=== PATIENT | female | born 1980 | race Caucasian/White ===

== ENCOUNTER 2022-06-20 10:34 | Outpatient (CLI) | payer BC, SELFPAY ==
[2022-06-20 22:31] LABS: Albumin* 5.1 g/dL (3.3-5.0); Chloride* 98 mmol/L (96-114); Sodium* 137 mmol/L (135-149)
[2022-06-20 22:32] LABS: Potassium* 4.6 mmol/L (3.6-5.1)
[2022-06-20 22:33] LABS: Cholesterol* 188 mg/dL (90-199)
[2022-06-20 22:34] LABS: Alanine Aminotransferase* 54 U/L (4-35); Alkaline Phosphatase* 83 U/L (40-150); Aspartate Amino Transferase* 29 U/L (12-35); Bilirubin Total* 0.6 mg/dL (0.1-1.5); Blood Urea Nitrogen* 18 mg/dL (5-24); Carbon Dioxide* 27 mmol/L (20-32); Creatinine* 0.8 mg/dL (0.5-1.5); Estimated Glomerular Filt Rate 94 ml/min; Glucose* 86 mg/dL (60-115); Total Protein* 7.8 g/dL (6.0-8.3); Triglycerides* 196 mg/dL (40-149)
[2022-06-20 22:35] LABS: Calcium* 10.3 mg/dL (8.4-10.6); HDL Cholesterol* 62 mg/dL (>=50); LDL Cholesterol Calculated 87 mg/dL (<100)
[2022-06-20 23:23] LABS: Hepatitis C Virus Antibody* Negative (Negative)
== END 2022-06-20 10:35 | disposition home or self-care (01) ==
PROVIDERS: PCP Physician Assistant Medical; Visit Provider Family Medicine
DX: Z00.00 Encounter for general adult medical examination without abnormal findings (principal); I10 Essential (primary) hypertension; E78.5 Hyperlipidemia, unspecified; F41.9 Anxiety disorder, unspecified; Z11.59 Encounter for screening for other viral diseases
CPT/HCPCS: 80053; 80061; 86803

== ENCOUNTER 2023-02-12 23:41 | Emergency (ER) | payer BC, SELFPAY ==
[2023-02-12 23:53] VITALS: BP 133/74; PULSE 117; RESP 18; TEMP 36.7; O2SAT 100; BMI 29.2
--- NOTE | 2023-02-13 01:21 | ED_ITS ---
HPI - General Adult General Chief complaint: Skin/Abscess/Foreign Body Stated complaint: infection on R side. Time Seen by Provider: 02/12/23 23:57 Source: patient Mode of arrival: ambulatory History of Present Illness HPI narrative: 42-year-old female presents to the emergency department for evaluation of skin abscess on her right chest. This has been bothersome for the past week. She was initially evaluated in clinic. Attempts at incision and drainage were made, unsuccessful. She was started on Bactrim, continues to take this, has a couple of days remaining she believes.. Patient left after a few days to vacation in [place] over the weekend. She reports that she got back into town this evening. She reports for the last few days the pain has been worsening, it has been getting red around the area. No drainage has been noted. It sounds like she went to an urgent care in [place] and was given a shot of Rocephin a couple of days ago but they did not switch her oral antibiotics nor make an attempt at incision and drainage. She has not been running fevers in the last few days. No nausea, vomiting, symptoms of sepsis, dizziness. She has had workup on this lesion in the past and it is known to be a sebaceous cyst that has become inflamed and infected recently. There was no trauma or injury. Past medical history notable for depression, hypertension. Home meds reviewed, she confirms that these are accurate. No recent surgeries. Nonsmoker. ROS is notable for the right chest skin symptoms as above. Otherwise denies any other skin, musculoskeletal, neurological, respiratory, cardiovascular or generalized changes. Related Data Previous Rx's Medication Instructions Recorded bupropion HCl 300 mg 24 hr tablet, 300 mg PO DAILY #90 tabs 06/20/22 extended release hydrochlorothiazide 25 mg tablet 25 mg PO DAILY #90 tabs 06/20/22 metoprolol succinate 25 mg 25 mg PO DAILY #90 tabs 06/20/22 tablet,extended release 24 hr trazodone 100 mg tablet 100 mg PO .hs #90 tabs 06/20/22 celecoxib 200 mg capsule (Celebrex) 200 mg PO QDAY #90 caps 08/22/22 acyclovir 400 mg tablet 400 mg PO QDAY #90 tabs 01/20/23 dexmethylphenidate 40 mg 40 mg PO QAM #30 caps 01/20/23 capsule,extended release [id number] (Focalin XR) [id number] See Rx Instructions PO Q4H PRN 01/24/23 50 mg-325 mg-40 mg tablet pain #30 tabs sulfamethoxazole 800 1 tab PO BID 10 days #20 tabs 02/06/23 mg-trimethoprim 160 mg tablet (Bactrim DS) sulfamethoxazole 800 1 tab PO BID #14 tabs 02/13/23 mg-trimethoprim 160 mg tablet (Bactrim DS) Allergies Allergy/AdvReac Type Severity Reaction Status Date / Time neomycin Allergy Intermediate Rash Verified 02/06/23 14:47 [facility] Medical History Shingles ?B02.9 - Zoster without complications (ICD-10) Malignant melanoma ?C43.9 - Malignant melanoma of skin, unspecified (ICD-10) History of fracture of facial bone (01/08/12) ?Z87.81 - Personal history of (healed) traumatic fracture (ICD-10) History of colonic polyps ?Z86.010 - Personal history of colonic polyps (ICD-10) 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, unspecified (ICD-10) Fracture of tibia and fibula ?S82.209A - Unspecified fracture of shaft of unspecified tibia, initial encounter for closed fracture (ICD-10) ?S82.409A - Unspecified fracture of shaft of unspecified fibula, initial encounter for closed fracture (ICD-10) Surgical History Status post biopsy of skin ?Z98.890 - Other specified postprocedural states (ICD-10) History of surgical removal of ganglion cyst ?Z98.890 - Other specified postprocedural states (ICD-10) History of sinus surgery ?Z98.890 - Other specified postprocedural states (ICD-10) History of placement of ear tubes ?Z96.22 - Myringotomy tube(s) status (ICD-10) History of cone biopsy of cervix ?Z98.890 - Other specified postprocedural states (ICD-10) History of colonoscopy with polypectomy (03/14/13) ?Z98.890 - Other specified postprocedural states (ICD-10) ?Z86.010 - Personal history of colonic polyps (ICD-10) History of cholecystectomy ?Z90.49 - Acquired absence of other specified parts of digestive tract (ICD- 10) History of breast augmentation ?Z98.82 - Breast implant status (ICD-10) Family History Father Cardiac arrhythmia Sister Crohn's disease Social History Narrative: Alcohol ingestion, 1-4 drinks/week Does not use illicit drugs Nonsmoker Smoking Status: Never smoker How often do you have a drink containing alcohol: never AUDIT-C Alcohol total score: 0 Non-prescribed substance use: denies use Little interest or pleasure in doing things: several days Feeling down, depressed, or hopeless: not at all Exam Const: Vital Signs, click to edit/add: Vital Signs - 24 hr 02/12/23 23:53 Temperature 98.1 F Pulse Rate [Left P ulse Oximeter] 117 H Respiratory Rate 18 Blood Pressure [Ri ght Upper Arm] 133/74 Pulse Oximetry 100 Oxygen Delivery Me thod Room Air Documenting provider has reviewed patient's vital signs: yes Common normals: no apparent distress General appearance: cooperative, comfortable and well kempt HENMT: Common normals: normocephalic Head and scalp: normocephalic Mouth: oral and palatal mucosa normal Throat: posterior oropharynx normal Eye: Common normals: conjunctivae normal General eye: normal appearance of both eyes Conjunctiva: conjunctiva(e) normal Neck & C-Spine: Common normals: full ROM and no lymphadenopathy Chest: Other: Larger area of redness surrounding central fluctuant tender area on right lateral chest wall underneath axilla. Does not communicate with axilla. Fluctuant area is 5 x 4 cm. Surrounding area of redness is 30 x 20 cm. Does not seem to communicate with breast structures or tunnel deeply. Resp: Common normals: normal respiratory effort and clear to auscultation bilaterally Effort & inspection: able to speak in complete sentences Auscultation: clear to auscultation bilaterally Cardio: Common normals: regular rate, regular rhythm, S1 normal heart sound, S2 normal heart sound and no murmurs Rate: regular rate Rhythm: regular rhythm Heart sounds: S1 normal and S2 normal Neuro: Speech: speech normal Motor exam: no movement abnormalities noted Psych: Appearance: well kempt Activity/motor behavior: appropriate eye contact Mood and affect: euthymic mood Insight: insight good Judgement: judgment good Skin: Narrative: No abrasions or signs of trauma. Please see abscess as documented above. Course Course Hospital Course: Obvious abscess. Fluctuant area does seem like it is ready for drainage. Risks and benefits of this discussed with patient. She gives verbal consent. Procedure incision and drainage: Area was cleansed with Betadine and injected with a total of 8 mL of 1% lidocaine with epinephrine, panting a very large area due to the fact that this is a rather large abscess and may need exploration. This did give good anesthesia. Incision was made in the posterior aspect of the fluctuant region bloody purulent fluid began flowing out immediately. Culture was taken. Curved hemostat was used to gently explore the fluctuant area, allowing more purulent material to express as well as some sebaceous material. Dental massaged for about 10 minutes was used around the entire indurated area to attempt to break open any further pham and infection containing areas. There was certainly still some firm areas that seem consistent with lymph nodes but no further areas of abscess or infection following incision and drainage. The 4 mm incised area is left open, covered in antibiotic ointment, several layers of gauze and a pressure dressing. Patient is counseled on care of the wound. Total procedure did take 30 minutes. Counseled patient that she will need additional days of oral antibiotics. Has been given additional supply Bactrim. Counseled that it is unlikely that the Bactrim failed but rather that abscesses do not tend to respond well to oral antibiotics. Once they were drained, the infection is much easier to treat. She will need this rechecked in 2-3 days in the clinic. If it is not improving appropriately, will need surgical consult urgently. Alarm symptoms reviewed such is signs of sepsis. Area of cellulitis surrounding was clearly marked. Patient may discontinue the Bactrim 5 days post incision and drainage if everything has cleared up nicely. Counseled that this will leave skin changes for several months but she should have marked improvement in pain, lumpiness and drainage within a couple of days. She verbalizes full understanding and agreement. Counseled on Tylenol and ibuprofen for pain control. Leave current dressing on for 24 hours, see discharge instructions. Vital Signs Vital signs: Initial Vital Signs Temperature 98.1 F 02/12/23 23:53 Temperature Source Temporal Artery Scan 02/12/23 23:53 Pulse Rate 117 H 02/12/23 23:53 Respiratory Rate 18 02/12/23 23:53 Blood Pressure 133/74 02/12/23 23:53 Blood Pressure Mean 93 02/12/23 23:53 Blood Pressure Position Sitting 02/12/23 23:53 Pulse Oximetry 100 02/12/23 23:53 Oxygen Delivery Method Room Air 02/12/23 23:53 Vital Signs Temperature 98.1 F 02/12/23 23:53 Pulse Rate 117 H 02/12/23 23:53 Respiratory Rate 18 02/12/23 23:53 Blood Pressure 133/74 02/12/23 23:53 Pulse Oximetry 100 02/12/23 23:53 Oxygen Delivery Method Room Air 02/12/23 23:53 Temperature 98.1 F 02/12/23 23:53 Pulse Rate 117 H 02/12/23 23:53 Respiratory Rate 18 02/12/23 23:53 Blood Pressure 133/74 02/12/23 23:53 Pulse Oximetry 100 02/12/23 23:53 Oxygen Delivery Method Room Air 02/12/23 23:53 Discharge Plan Discharge Clinical Impression: Abscess of skin and subcutaneous tissue Patient Disposition: Home w/ Parent or Adult Condition: Improved Instructions: Abscess Incision and Drainage (DC) Additional Instructions: As we discussed, these types of infections tend to heal much better once they are properly drained. I was able to extract a lot of pus and fluid from the abscess. It may continue to drain. It should hurt markedly less than prior to drainage. It will still be tender for a few days as there are inflamed lymph nodes and inflamed skin and subcutaneous tissue around the area. I have applied antibiotic ointment, gauze and a large pressure dressing. This will help prevent further bleeding and complication. Please try to leave this particular dressing on for the 1st 24 hours. After 24 hours, carefully remove the tape, shower as usual and reapply antibiotic ointment and some sort of Band-Aid covering, changing every 24 hours. I would like for you to make a follow-up in the clinic to have this rechecked in 2-3 days. If there is not marked improvement, it needs to be addressed by the general surgeon. That provider would need to take care of that urgent referral. You will continue on Bactrim, I have sent an additional 7 day course. You may discontinue antibiotics in 5 days if things have healed markedly. Please remember that you may take Tylenol and ibuprofen for pain. Proper dosing of Tylenol is a 1000 mg every 6 hours, ibuprofen is 600 mg every 6 hours. You may go ahead and take these right away when you get home as well. You may swab between the 2 medications every 3 hours to achieve even better results. Activity Level: No Restrictions Discharge Diet: Regular Prescriptions: New sulfamethoxazole-trimethoprim [Bactrim DS] 800-160 mg tablet 1 tab PO BID Qty: 14 0RF No Action sulfamethoxazole-trimethoprim [Bactrim DS] 800-160 mg tablet 1 tab PO BID 10 Days Qty: 20 0RF bupropion HCl 300 mg tablet extended release 24 hr 300 mg PO DAILY Qty: 90 3RF trazodone 100 mg tablet 100 mg PO .hs Qty: 90 3RF hydrochlorothiazide 25 mg tablet 25 mg PO DAILY Qty: 90 3RF metoprolol succinate 25 mg tablet extended release 24 hr 25 mg PO DAILY Qty: 90 3RF acyclovir 400 mg tablet 400 mg PO QDAY Qty: 90 0RF dexmethylphenidate [Focalin XR] 40 mg capsule,ER biphasic 50-50 40 mg PO QAM Qty: 30 0RF celecoxib [Celebrex] 200 mg capsule 200 mg PO QDAY Qty: 90 3RF phlbbhopfh-nwznlebixaken-behm 50-325-40 mg tablet See Rx Instructions PO Q4H PRN (Reason: pain) Qty: 30 0RF Rx Instructions: 1 tab every 4 hours PRN; Follow Up/Referrals: Ana M Ellis MD [Primary Care Provider] - Stand Alone Forms: [employer] Info Instructions
== END 2023-02-13 01:23 | disposition home or self-care (01) ==
PROVIDERS: Emergency Provider Family Medicine; PCP Family Medicine
DX: L03.313 Cellulitis of chest wall (principal)
CPT/HCPCS: 10060; 87070; 87186; 99283

== ENCOUNTER 2023-02-21 10:03 | Outpatient (CLI) | payer BC, SELFPAY ==
[2023-02-21 13:32] LABS: Hemoglobin A1C* 5.14 % (0-5.6)
[2023-02-22 18:25] LABS: Zinc, Serum/Plasma 80.9 ug/dL (60.0-120.0)
== END 2023-02-21 10:04 | disposition home or self-care (01) ==
LOC: WOUND 10:03
PROVIDERS: PCP Family Medicine; Visit Provider Nurse Practitioner Family
DX: L02.411 Cutaneous abscess of right axilla (principal); E88.9 Metabolic disorder, unspecified
CPT/HCPCS: 11042; 36415; 82728; 83036; 84630; 99212

== ENCOUNTER 2023-02-24 14:21 | Outpatient (CLI) | payer BC, SELFPAY | END 2023-02-24 14:22 | disposition home or self-care (01) | LOC: WOUND 14:22 | PROVIDERS: PCP Family Medicine; Visit Provider Nurse Practitioner Family | DX: L02.411 Cutaneous abscess of right axilla (principal); E88.9 Metabolic disorder, unspecified | CPT/HCPCS: 99213 ==

== ENCOUNTER 2023-02-28 09:32 | Outpatient (CLI) | payer BC, SELFPAY | END 2023-02-28 09:33 | disposition home or self-care (01) | LOC: WOUND 09:32 | PROVIDERS: PCP Family Medicine; Visit Provider Nurse Practitioner Family | DX: L02.219 Cutaneous abscess of trunk, unspecified (principal); E88.9 Metabolic disorder, unspecified | CPT/HCPCS: 11042 ==

== ENCOUNTER 2023-03-03 15:31 | Outpatient (CLI) | payer BC, SELFPAY | END 2023-03-03 15:32 | disposition home or self-care (01) | LOC: WOUND 15:31 | PROVIDERS: PCP Family Medicine; Visit Provider Nurse Practitioner Family | DX: L02.219 Cutaneous abscess of trunk, unspecified (principal); E88.9 Metabolic disorder, unspecified | CPT/HCPCS: 99212 ==

== ENCOUNTER 2023-03-10 08:32 | Outpatient (CLI) | payer BC, SELFPAY | END 2023-03-10 08:33 | disposition home or self-care (01) | LOC: WOUND 08:32 | PROVIDERS: PCP Family Medicine; Visit Provider Nurse Practitioner Family | DX: L02.219 Cutaneous abscess of trunk, unspecified (principal); E88.9 Metabolic disorder, unspecified | CPT/HCPCS: 97597 ==

== ENCOUNTER 2023-03-21 08:34 | Outpatient (CLI) | payer BC, SELFPAY | END 2023-03-21 08:35 | disposition home or self-care (01) | LOC: WOUND 08:34 | PROVIDERS: PCP Family Medicine; Visit Provider Nurse Practitioner Family | DX: L72.3 Sebaceous cyst (principal); E88.9 Metabolic disorder, unspecified | CPT/HCPCS: 11042 ==

== ENCOUNTER 2023-03-31 08:36 | Outpatient (CLI) | payer BC, SELFPAY | END 2023-03-31 08:37 | disposition home or self-care (01) | LOC: WOUND 08:36 | PROVIDERS: PCP Family Medicine; Visit Provider Nurse Practitioner Family | DX: L02.411 Cutaneous abscess of right axilla (principal); E88.9 Metabolic disorder, unspecified | CPT/HCPCS: 11042 ==

== ENCOUNTER 2023-04-07 08:23 | Outpatient (CLI) | payer BC, SELFPAY | END 2023-04-07 08:24 | disposition home or self-care (01) | PROVIDERS: PCP Family Medicine; Visit Provider Nurse Practitioner Family | DX: L02.411 Cutaneous abscess of right axilla (principal); E88.9 Metabolic disorder, unspecified | CPT/HCPCS: 99212 ==

== ENCOUNTER 2023-04-14 08:22 | Outpatient (CLI) | payer BC, SELFPAY | END 2023-04-14 08:23 | disposition home or self-care (01) | LOC: WOUND 08:22 | PROVIDERS: PCP Family Medicine; Visit Provider Nurse Practitioner Family | DX: L02.411 Cutaneous abscess of right axilla; E88.9 Metabolic disorder, unspecified | CPT/HCPCS: 99212 ==

== ENCOUNTER 2023-06-19 10:15 | Outpatient (CLI) | payer BC, SELFPAY | END 2023-06-19 10:16 | disposition home or self-care (01) | PROVIDERS: PCP Family Medicine; Visit Provider Family Medicine | DX: Z00.00 Encounter for general adult medical examination without abnormal findings (principal); E78.5 Hyperlipidemia, unspecified; I10 Essential (primary) hypertension; F41.9 Anxiety disorder, unspecified | CPT/HCPCS: 80053; 80061 ==

== ENCOUNTER 2023-09-08 12:06 | Outpatient (CLI) | payer BC, SELFPAY | END 2023-09-08 12:07 | disposition home or self-care (01) | LOC: NFLDREF 12:06 | PROVIDERS: PCP Family Medicine; Visit Provider Registered Nurse | DX: N39.3 Stress incontinence (female) (male) (principal) | CPT/HCPCS: 87086 ==

== ENCOUNTER 2023-09-15 13:14 | Outpatient (CLI) | payer BC, SELFPAY ==
--- NOTE | 2023-09-15 13:20 | CRLHL7_ITS ---
For Patients: As a result of the Century Cures Act, medical imaging exams and procedure reports are released immediately into your electronic medical record. You may view this report before your referring provider. If you have questions, please contact your health care provider. BILATERAL SCREENING MAMMOGRAM WITH COMPUTER-AIDED DETECTION AND TOMOSYNTHESIS TECHNIQUE: CC, MLO and Implant displaced views were obtained. These mammographic images have been obtained using full-field digital technique. These mammographic images were interpreted with the benefit of computer-aided detection. Breast Tomosynthesis was used in this interpretation. COMPARISON FILM: 06/29/21. FINDINGS: The breasts are heterogeneously dense, which may obscure small masses. IMPRESSION: There is no radiographic evidence for malignancy. ASSESSMENT: BI-RADS Category 2: Benign RECOMMENDATION: Routine screening mammogram in 1 year. A lay language report of this examination will be provided to the patient. Don Baker M.D. Diagnostic Radiologist [email or web address] SP/Dictated by: Don Baker MD @ 09/15/2023 3:17:00 PM (Electronically Signed)
== END 2023-09-15 13:15 | disposition home or self-care (01) ==
LOC: MAMMO 13:15
PROVIDERS: PCP Family Medicine; Visit Provider Family Medicine
DX: Z12.31 Encounter for screening mammogram for malignant neoplasm of breast (principal); R92.2 Inconclusive mammogram
CPT/HCPCS: 77063; 77067

== ENCOUNTER 2024-06-28 12:33 | Outpatient (CLI) | payer BC, SELFPAY | END 2024-06-28 12:34 | disposition home or self-care (01) | PROVIDERS: PCP Family Medicine; Visit Provider Family Medicine | DX: Z00.00 Encounter for general adult medical examination without abnormal findings (principal); I10 Essential (primary) hypertension; E78.5 Hyperlipidemia, unspecified; E66.9 Obesity, unspecified; F41.9 Anxiety disorder, unspecified; Z13.1 Encounter for screening for diabetes mellitus; Z13.6 Encounter for screening for cardiovascular disorders | CPT/HCPCS: 80053; 80061; 82043; 82570 ==

== ENCOUNTER 2024-10-11 12:56 | Outpatient (CLI) | payer BC, SELFPAY | END 2024-10-11 12:57 | disposition home or self-care (01) | LOC: MAMMO 12:58 | PROVIDERS: PCP Family Medicine; Visit Provider Family Medicine | DX: Z12.31 Encounter for screening mammogram for malignant neoplasm of breast (principal) | CPT/HCPCS: 77063; 77067 ==